=== PATIENT | female | born 1960 | race Caucasian/White ===

== ENCOUNTER 2023-05-20 11:15 | Emergency (ER) | payer OTHER, SELFPAY ==
[2023-05-20] VITALS (24 sets, daily range): BP systolic 121–168; BP diastolic 73–103; PULSE 81–98; RESP 15–21; TEMP 36.8–37.2; O2SAT 93–98
--- NOTE | 2023-05-20 11:15 | DI.RAD_ITS ---
Exam(s) XR CHEST 2V PA LATERAL EXAM: XR CHEST 2V PA LATERAL CLINICAL HISTORY: chest tightness TECHNIQUE: 2D digital imaging was performed of the chest. Two images were obtained. PA and lateral views were obtained. COMPARISON: No exams were available for comparison FINDINGS: MEDIASTINUM: Normal. HEART: Normal. PULMONARY VASCULATURE: Normal. LUNGS: Clear. PLEURAL SPACE: No pleural effusion or pneumothorax. BONE:Within normal limits for the patient's age. OTHER FINDINGS:Normal. IMPRESSION: No acute pulmonary findings. DATA REPOSITORY: RADIATION DOSE DELIVERED:
--- NOTE | 2023-05-20 11:15 | RT.EKG_ITS ---
APPROVED REPORT Exam: Resting ECG Reason for Exam: chest tightness Patient Location: E HR:93 bpm ECG Measurements Heart Rate 93 AXIS DC 162 P 23 QRSd 90 QRS 154 QT 380 T 69 QTc 472 Conclusion normal sinus rhythm. Inferior infarct, old...Q >35mS, II III aVF Appropriate intervals. No ST segment or T wave abnormalities to suggest occlusive [place]
--- NOTE | 2023-05-20 11:38 | W.ED.GENAD ---
Discharge Plan Disposition Patient Disposition: Home Condition: Good Discharge Details Clinical Impression: Vomiting, Chest pain Primary Care Provider: Unknown,Unknown ED Provider: Francia Diaz Home Meds and New Rx's Prescriptions: New prochlorperazine maleate [Compazine] 5 mg tablet 5 mg PO TID PRNQty: 14 0RF No Action Ozempic 2 mg/dose (8 mg/3 mL) Pen Injector 2 mg SUBCUT QWEEK atorvastatin 80 mg Tablet 80 mg PO DAILY clopidogrel 75 mg Tablet 75 mg PO DAILY pantoprazole 20 mg Tablet,Delayed Release (Dr/Ec) 20 mg PO DAILY amlodipine 10 mg Tablet 10 mg PO DAILY ferrous sulfate [Iron (ferrous sulfate)] 325 mg (65 mg iron) Tablet 325 mg PO DAILY nitroglycerin 0.6 mg Tablet, Sublingual 0.6 mg sublingual PRN PRN sertraline 25 mg Tablet 25 mg PO DAILY Vitamin D3 100 mcg (4,000 unit) Capsule 1,000 unit PO DAILY Eliquis 5 mg Tablet 5 mg PO DAILY metoprolol succinate 50 mg Capsule,Sprinkle,Er 24hr 50 mg PO DAILY Discharge Instructions Instructions: Chest Pain (ED), Gastroenteritis (ED) Additional Instructions: Please call your dental chairside assistant tomorrow to schedule an appointment early this week to followup on your visit here. Take compazine as needed for nausea; follow the directions on the bottle. Return for new or worsening symptoms including inability to keep down fluids, new/different/worse chest pain, shortness of breath, or if you have any other concerns. Medical Decision Making 62yo F with hx of T2DM, CAD, prior MIs, presenting for vomiting and chest tightness x 36 hours. Vomiting preceded chest symptoms. Vital signs reassuring on arrival, slightly tachycardiac to high 90's. Reassuring physical exam with no abdominal tenderness. Given 1L IVFB and IV zofran for symptoms. EKG NSR, appropriate intervals. No ST segment or T wave abnormalities to suggest occlusive [place] CXR independently reviewed; no pneumothorax or pneumonia, agree with radiology read below. Labs as below, CBC & CMP reassuring, slightly elevated LFTs unlikley related to presentation today. Initial troponin negative. CT chest and CT abd/pelvis independently reviewed; no large pulmonary embolism or aortic dissection or medsistinal air, no bowel obstruction, agree with radiology read below (fatty liver). On reassessment patient reports nausea only slight improved. Given PO compazine. Delta troponin negative. Subsequently reports symptoms improved, able to tolerate PO. Requesting discharge home which is reasonable; reassuring cardiac workup here (though does have significant risk factors) and suspect likely primarily GI/gastroenteritis in origin. Advised to followup closely with her dental chairside assistant and return of symptoms return, change, or worsening. Advised of incidental finding of fatty liver, patient aware of gallbladder sludge prior. Discharged home with prescription for compazine; discharge instructions including return precautions were reviewed with patient who verbalized understanding. All questions were answered and they are in full agreement with the plan. Imaging Data Radiologic Study: Imaging: X-Ray Radiologist's impression: No acute findings Radiologic Study #2: Imaging: CT Scan Radiologist's impression: No acute findings Dilated main pulmonary artery. Possible pulmonary artery hypertension. Radiologic Study #3: Imaging: CT Scan Radiologist's impression: Dilated gallbladder. Fatty infiltration of the liver. Hepatomegaly. Lab Data Lab results reviewed: Yes I reviewed the patient's lab results. Labs: Laboratory Tests Range/Units 05/20/23 05/20/23 05/20/23 11:40 11:40 11:40 WBC (4.4-10.8) 10^3/uL 6.54 RBC (3.93-5.22) 10^6/uL 5.26 H Hgb (11.2-15.7) g/dL 15.1 Hct (36.0-46.0) % 45.6 MCV (80-95) fL 87 MCH (27.0-33.0) pg 28.7 MCHC (32.0-36.0) % 33.1 RDW (11.7-14.6) % 13.8 Plt Count (130-400) 10^3/uL 234 MPV (8.0-11.0) fL 10.1 Immature Gran % 0.5 Neutrophils % 69.8 Lymphocytes % 21.7 Monocytes % 6.9 Eosinophils % 0.6 Basophils % 0.5 Nucleated RBC % (0.0-0.3) % 0.0 Absolute Neutrophils (1.2-6.7) 10^3/uL 4.57 Absolute Lymphocytes (1.2-3.4) 10^3/uL 1.42 Absolute Monocytes (0.1-0.8) 10^3/uL 0.45 Absolute Eosinophils (0.0-0.7) 10^3/uL 0.04 Absolute Basophils (0.0-0.2) 10^3/uL 0.03 VBG Lactate (0.6-1.4) mmol/L 1.8 H Sodium (136-145) mmol/L 140 Potassium (3.5-5.1) mmol/L 3.6 Chloride (98-107) mmol/L 101 Carbon Dioxide (21.0-32.0) mmol/L 28.7 Anion Gap (3-11) mmol/L 10.3 BUN (7-18) mg/dL 19 H Creatinine (0.55-1.02) mg/dL 0.9 Est GFR (CKD-EPI 2020) (mL/min/1.73m2) 73.19 Glucose (74-106) mg/dL 269 H Calcium (8.5-10.1) mg/dL 9.7 Magnesium (1.8-2.4) mg/dL 1.7 L Total Bilirubin (0.2-1.0) mg/dL 1.4 H AST (15-37) U/L 56 H ALT (14-59) U/L 73 H Alkaline Phosphatase (46-116) U/L 65 Troponin I (<or=60) ng/L < 50 Total Protein (6.4-8.2) g/dL 7.4 Albumin (3.4-5.0) g/dL 3.7 Range/Units 05/20/23 14:33 WBC (4.4-10.8) 10^3/uL RBC (3.93-5.22) 10^6/uL Hgb (11.2-15.7) g/dL Hct (36.0-46.0) % MCV (80-95) fL MCH (27.0-33.0) pg MCHC (32.0-36.0) % RDW (11.7-14.6) % Plt Count (130-400) 10^3/uL MPV (8.0-11.0) fL Immature Gran % Neutrophils % Lymphocytes % Monocytes % Eosinophils % Basophils % Nucleated RBC % (0.0-0.3) % Absolute Neutrophils (1.2-6.7) 10^3/uL Absolute Lymphocytes (1.2-3.4) 10^3/uL Absolute Monocytes (0.1-0.8) 10^3/uL Absolute Eosinophils (0.0-0.7) 10^3/uL Absolute Basophils (0.0-0.2) 10^3/uL VBG Lactate (0.6-1.4) mmol/L Sodium (136-145) mmol/L Potassium (3.5-5.1) mmol/L Chloride (98-107) mmol/L Carbon Dioxide (21.0-32.0) mmol/L Anion Gap (3-11) mmol/L BUN (7-18) mg/dL Creatinine (0.55-1.02) mg/dL Est GFR (CKD-EPI 2020) (mL/min/1.73m2) Glucose (74-106) mg/dL Calcium (8.5-10.1) mg/dL Magnesium (1.8-2.4) mg/dL Total Bilirubin (0.2-1.0) mg/dL AST (15-37) U/L ALT (14-59) U/L Alkaline Phosphatase (46-116) U/L Troponin I (<or=60) ng/L < 50 Total Protein (6.4-8.2) g/dL Albumin (3.4-5.0) g/dL HPI General Mode of arrival: ambulatory. Date/Time Provider Initiated Documentation: 05/20/23 11:20. Limitations to Documentation: no limitations. Information obtained by: patient. HPI Narrative: 62yo F with hx of T2DM, CAD, prior MIs, presenting for vomiting and chest tightness x 36 hours. Vomiting started first, has been persistent, nonbloody non-bilious, and she is unable to keep anything down. Chest tightness is dull, substernal, non-radiating, and has no alleviating or aggravating factors. Lower abdominal cramping, otherwise no abdominal pain. No diarrhea. No sick contacts. She has shortness of breath at baseline which is unchanged. She is otherwise in her usual state of health with no fevers, chills, rash, dysuria, hematuria, syncope, presyncope, palpitations, or other concerns. Related Data Home Medications Medication Instructions Recorded Confirmed amlodipine 10 mg tablet 10 mg PO DAILY 05/20/23 05/20/23 apixaban 5 mg tablet (Eliquis) 5 mg PO DAILY 05/20/23 05/20/23 atorvastatin 80 mg tablet 80 mg PO DAILY 05/20/23 05/20/23 cholecalciferol (vitamin D3) 100 1,000 unit PO DAILY 05/20/23 05/20/23 mcg (4,000 unit) capsule clopidogrel 75 mg tablet 75 mg PO DAILY 05/20/23 05/20/23 ferrous sulfate 325 mg (65 mg 325 mg PO DAILY 05/20/23 05/20/23 iron) tablet (Iron (ferrous sulfate)) metoprolol succinate 50 mg capsule 50 mg PO DAILY 05/20/23 05/20/23 sprinkle, ext. release 24 hr nitroglycerin 0.6 mg sublingual 0.6 mg sublingual PRN PRN 05/20/23 05/20/23 tablet pantoprazole 20 mg tablet,delayed 20 mg PO DAILY 05/20/23 05/20/23 release prochlorperazine maleate 5 mg 5 mg PO TID PRN #14 tabs 05/20/23 tablet (Compazine) semaglutide 2 mg/dose (8 mg/3 mL) 2 mg subcut QWEEK 05/20/23 05/20/23 subcutaneous pen injector (Ozempic) sertraline 25 mg tablet 25 mg PO DAILY 05/20/23 05/20/23 Previous Rx's Medication Instructions Recorded prochlorperazine maleate 5 mg 5 mg PO TID PRN #14 tabs 05/20/23 tablet (Compazine) Allergies Allergy/AdvReac Type Severity Reaction Status Date / Time levofloxacin [From Levaquin] Allergy Hives Unverified 05/20/23 11:21 General Stated Complaint: Nausea/Vomit/Diar JACQUI: 3 Review of Systems Narrative: see HPI PFSH All Active Problems (Updated 05/20/23 @ 16:02 by Francia Diaz MD) Vomiting (Acute) Chest pain (Acute) Social History Smoking/Tobacco Use Status: Never Smoking risk assessment performed?: Yes Alcohol Intake: never Drug use: Never Do you feel safe at home: Yes Do you feel safe in your relationship?: Yes Exam Narrative Exam Narrative: General: Alert, well appearing, well nourished, in no acute distress. Head: Normocephalic, atraumatic Neck: Trachea midline, Neck supple. ENT: MMM. No oropharygeal lesions or exudate. Cardiac: RRR, no murmurs appreciated Resp: No respiratory distress. CTAB. Abd: Soft, non-distended, nontender : No suprapubic tenderness. No CVA tenderness. Extremities: No deformities. No peripheral edema. Neurologic: GCS 15. Moves all extremities freely against gravity Course Vital Signs Vital signs: Vital Signs Temperature 37.2 C 05/20/23 11:18 Pulse 98 H 05/20/23 11:18 Respiratory Rate 20 05/20/23 11:18 Blood Pressure 127/73 05/20/23 11:18 Pulse Oximetry 96 05/20/23 11:18 Temperature 37.2 C 05/20/23 11:18 Temperature Source Skin 05/20/23 11:18 Pulse 98 H 05/20/23 11:18 Respiratory Rate 20 05/20/23 11:18 Blood Pressure 127/73 05/20/23 11:18 Blood Pressure Position Supine 05/20/23 11:18 Pulse Oximetry 96 05/20/23 11:18 Oxygen Delivery Method Room Air 05/20/23 11:18 Oxygen Flow Rate 0 05/20/23 11:18 Pain Level 4 05/20/23 11:18
[2023-05-20] MEDS: Normal Saline 1,000 ML 1000 ML IV (11:45)
[2023-05-20 11:49] LABS: Lactate 1.8 mmol/L (0.6-1.4)
[2023-05-20] MEDS: Aspirin 81 MG CHEW 324 MG CH (11:50)
[2023-05-20] MEDS: Ondansetron 4 MG/2 ML VIAL IVP (11:50)
[2023-05-20 11:52] LABS: Abs Immature Grans 0.03 10^3/uL (0.0-0.06); Absolute Basophil Count 0.03 10^3/uL (0.0-0.2); Absolute Eosinophil Count 0.04 10^3/uL (0.0-0.7); Absolute Lymphocyte Count 1.42 10^3/uL (1.2-3.4); Absolute Monocyte Count 0.45 10^3/uL (0.1-0.8); Absolute Neutrophil Count 4.57 10^3/uL (1.2-6.7); Basophils % 0.5; Eosinophils % 0.6; HCT 45.6 % (36.0-46.0); HGB 15.1 g/dL (11.2-15.7); Immature Grans % 0.5; Lymphocytes % 21.7; MCH 28.7 pg (27.0-33.0); MCHC 33.1 % (32.0-36.0); MCV 87 fL (80-95); MPV 10.1 fL (8.0-11.0); Monocytes % 6.9; Neutrophils % 69.8; Platelet Count 234 10^3/uL (130-400); RBC 5.26 10^6/uL (3.93-5.22); RDW 13.8 % (11.7-14.6); RDW-SD 43.7 fL; WBC 6.54 10^3/uL (4.4-10.8)
--- NOTE | 2023-05-20 12:00 | DI.CT_ITS ---
Exam(s) CT THORAX CTA EXAM: CT THORAX CTA CLINICAL HISTORY: chest pain. TECHNIQUE: Imaging Protocol: Axial CT angiography was performed with multi-slice acquisition and mu lti-planar and/or 3D reconstructions. CONTRAST MATERIAL: Intravenous: Omnipaque 350 contrast volume:98 mL COMPARISON: CR,XR XR CHEST 2V PA LATERAL from 05/20/2023 FINDINGS: Tracheobronchial tree: Patent where visualized. Pulmonary parenchyma: No consolidation or dominant measurable mass. Dependent atelectatic changes are seen. There is also mild bilateral subpleural fibrosis. Pulmonary Arteries: No evidence of filling defect to suggest pulmonary emboli. The main pulmonary art francisco is dilated. This may represent pulmonary artery hypertension. Mediastinum and Allie: No dominant adenopathy or fluid collection. The esophagus is unremarkable. Visualized thyroid gland: Unremarkable. Pleura: No effusion or pneumothorax. Heart: The heart is not dilated. Marked coronary artery calcification is present. No pericardial eff usion. Aorta: Thoracic aorta non-dilated. No evidence of dissection. Atherosclerosis is present. Soft tissues: Unremarkable. Bones: Within normal limits for the patient's age. IMPRESSION: No evidence of pulmonary embolism, thoracic aortic dissection or aneurysm. RADIATION DOSE DELIVERED: 1627.15 mGy.cm Total DLP DATA REPOSITORY: All CT scans at this facility are submitted to the National Radiology Data Registry (NRDR) Dose Index Registry (DIR) with the [employer] (A[employer]). RADIATION OPTIMIZATION: All CT scans at this facility use at least one of these dose optimization te chniques: automated exposure control; mA and/or kV adjustment per patient size (includes targeted exa ms where dose is matched to clinical indication); or iterative reconstruction.
[2023-05-20 12:09] LABS: ALT 73 U/L (14-59); AST 56 U/L (15-37); Albumin 3.7 g/dL (3.4-5.0); Alkaline Phosphatase 65 U/L (46-116); Anion Gap 10.3 mmol/L (3-11); BUN 19 mg/dL (7-18); Bilirubin, Total 1.4 mg/dL (0.2-1.0); CO2 28.7 mmol/L (21.0-32.0); CREATININE 0.9 mg/dL (0.55-1.02); Calcium 9.7 mg/dL (8.5-10.1); Chloride 101 mmol/L (98-107); Estimated GFR 73.19 (mL/min/1.73m2); Glucose 269 mg/dL (74-106); Magnesium 1.7 mg/dL (1.8-2.4); Potassium 3.6 mmol/L (3.5-5.1); Sodium 140 mmol/L (136-145); Total Protein 7.4 g/dL (6.4-8.2); Troponin I < 50 ng/L (<or=60)
--- NOTE | 2023-05-20 12:12 | DI.VRAD_ITS ---
PROCEDURE INFORMATION: Exam: XR Chest Exam date and time: 05/20/2023 12:04 PM Age: 62 years old Clinical indication: Other: Chest tightness TECHNIQUE: Imaging protocol: Radiologic exam of the chest. Views: 2 views. COMPARISON: No relevant prior studies available. FINDINGS: Lungs: Unremarkable. No consolidation. Pleural spaces: Unremarkable. No pleural effusion. No pneumothorax. Heart/Mediastinum: Unremarkable. No cardiomegaly. Bones/joints: Unremarkable. IMPRESSION: No acute findings. Dictated and Authenticated by: Franklin Ashraf MD. Ordering:GIAN Feldman MD
--- NOTE | 2023-05-20 12:15 | DI.CT_ITS ---
Exam(s) CT ABDOMEN PELVIS W EXAM: CT ABDOMEN PELVIS W CLINICAL HISTORY: vomiting, abdominal pain TECHNIQUE: Imaging Protocol: Axial computed tomography images with coronal and sagittal reformatted images were created and reviewed CONTRAST MATERIAL: Intravenous: Omnipaque 350 Contrast volume:98 mL Oral: No COMPARISON: There are no priors for comparison. FINDINGS: ABDOMEN: Liver: There is fatty infiltration of the liver. Hepatomegaly. No measurable mass. Portal, Superior Mesenteric, and Splenic Veins: Unremarkable. Gallbladder and Biliary Tract: No radiodense calculus or dilation. There is contrast seen in the gall bladder which may reflect vicarious excretion. The gallbladder is dilated. Pancreas: Normal density, no abnormal calcifications or inflammatory process. Spleen: Normal. Adrenals: No masses seen. Kidneys: Normal size, contour and axis. No radiodense stones or obstructive uropathy. No masses seen. Contrast excretion is seen in the renal collecting system. Abdominal Aorta: Abdominal portion non-dilated. Atherosclerosis. Bowel: No obstruction or bowel wall thickening. Appendix is unremarkable. Peritoneal Cavity: No ascites, collection or mesenteric inflammatory response. No free air. Lymph Nodes: Within normal limits. Bones: Within normal limits for the patient's age. Soft Tissues: Unremarkable. PELVIS: Bladder: Symmetric distention, no gross wall thickening. Reproductive Organs: Unremarkable as visualized. Lymph Nodes: Within normal limits. Bones: Within normal limits for the patient's age. IMPRESSION: 1. No acute abdominal or pelvic process. 2. Hepatomegaly and hepatic steatosis. 3. Dilated gallbladder. No biliary ductal dilatation. RADIATION DOSE DELIVERED: Total DLP DATA REPOSITORY: All CT scans at this facility are submitted to the National Radiology Data Registry (NRDR) Dose Index Registry (DIR) with the [employer] (ACR). RADIATION OPTIMIZATION: All CT scans at this facility use at least one of these dose optimization te chniques: automated exposure control; mA and/or kV adjustment per patient size (includes targeted exa ms where dose is matched to clinical indication); or iterative reconstruction.
[2023-05-20] MEDS: Normal Saline - Diluent 50 ML VIAL IJ (12:32)
[2023-05-20] MEDS: Normal Saline Flush 10 ML SYR IVP (12:32)
[2023-05-20] MEDS: Omnipaque 350 MG/ML 100 ML BTL IJ (12:33)
--- NOTE | 2023-05-20 13:48 | DI.VRAD_ITS ---
PROCEDURE INFORMATION: Exam: CT Abdomen And Pelvis With Contrast Exam date and time: 05/20/2023 12:31 PM Age: 62 years old Clinical indication: Other: Vomitting, abdominal pain TECHNIQUE: Imaging protocol: Computed tomography of the abdomen and pelvis with contrast. Radiation optimization: All CT scans at this facility use at least one of these dose optimization techniques: automated exposure control; mA and/or kV adjustment per patient size (includes targeted exams where dose is matched to clinical indication); or iterative reconstruction. Contrast material: OMNI 350; Contrast volume: 98 ml; Contrast route: INTRAVENOUS (IV); COMPARISON: CR XR CHEST 2V PA LATERAL 05/20/2023 12:04 PM FINDINGS: Liver: Fatty infiltration of the liver. 21.4 cm. No focal mass. Gallbladder and bile ducts: Dilated gallbladder. Contrast excretion into the gallbladder. Pancreas: Normal. No ductal dilation. Spleen: Normal. No splenomegaly. Adrenal glands: Normal. No mass. Kidneys and ureters: Normal. No hydronephrosis. Stomach and bowel: Unremarkable. No obstruction. No mucosal thickening. Appendix: No evidence of appendicitis. Intraperitoneal space: Unremarkable. No free air. No significant fluid collection. Vasculature: Unremarkable. No abdominal aortic aneurysm. Lymph nodes: Unremarkable. No enlarged lymph nodes. Urinary bladder: Unremarkable as visualized. Reproductive: Midline uterus. No adnexal mass. Bones/joints: Unremarkable. No acute fracture. Soft tissues: Rectus diastasis. IMPRESSION: 1. Dilated gallbladder. 2. Fatty infiltration of the liver. Hepatomegaly. Dictated and Authenticated by: Franklin Ashraf MD. Ordering:GIAN Feldman MD
--- NOTE | 2023-05-20 13:48 | DI.VRAD_ITS ---
PROCEDURE INFORMATION: Exam: CTA Chest With Contrast Exam date and time: 05/20/2023 12:31 PM Age: 62 years old Clinical indication: Other: Chest pain TECHNIQUE: Imaging protocol: Computed tomographic angiography of the chest with contrast. Exam focused on the arteries. 3D rendering (Not supervised by radiologist): MIP and/or 3D reconstructed images were created by the technologist. Radiation optimization: All CT scans at this facility use at least one of these dose optimization techniques: automated exposure control; mA and/or kV adjustment per patient size (includes targeted exams where dose is matched to clinical indication); or iterative reconstruction. Contrast material: OMNI 350; Contrast volume: 100 ml; Contrast route: INTRAVENOUS (IV); COMPARISON: CR XR CHEST 2V PA LATERAL 05/20/2023 12:04 PM FINDINGS: Pulmonary arteries: Main pulmonary artery 3.4 cm. No pulmonary emboli. Aorta: Unremarkable. No aortic aneurysm. No aortic dissection. Lungs: Bilateral subpleural fibrosis. No airspace disease or lung consolidation. Pleural spaces: Unremarkable. No pneumothorax. No pleural effusion. Heart: Unremarkable. No cardiomegaly. No pericardial effusion. Lymph nodes: Unremarkable. No enlarged lymph nodes. Bones/joints: Unremarkable. No acute fracture. Soft tissues: Unremarkable. IMPRESSION: 1. No acute findings. 2. Dilated main pulmonary artery. Possible pulmonary artery hypertension. Dictated and Authenticated by: Franklin Ashraf MD. Ordering:GIAN Feldman MD
[2023-05-20 14:56] LABS: Troponin I < 50 ng/L (<or=60)
[2023-05-20] MEDS: Prochlorperazine 5 MG TAB PO (15:25)
--- NOTE | 2023-05-20 15:33 | NUR.NOTE ---
pt given diet emiliana-iram as PO challenge after compazine Nursing Note:
== END 2023-05-20 16:16 | disposition home or self-care (01) ==
PROVIDERS: Emergency Provider Student in an Organized Health Care Education/Training Program
DX: R10.30 Lower abdominal pain, unspecified (principal); R07.9 Chest pain, unspecified; R11.2 Nausea with vomiting, unspecified; I25.2 Old myocardial infarction; I25.10 Atherosclerotic heart disease of native coronary artery without angina pectoris
CPT/HCPCS: 36415; 71275; 80053; 93005; 96361; 96374; 99285; 71046; 74177; 83605; 83735; 84484; 85025; 93010; J2405; J3490